=== PATIENT | female | born 1930 | race Caucasian/White ===

== ENCOUNTER 2016-05-22 17:07 | Emergency (ER) | payer MEDICARE, BC ==
[2016-05-04 19:46] VITALS: BMI 30.4
[~2016-05-22 17:07] MED LIST: ALEVE220 MG PO; ASPIRIN81 MG PO; NIFEDIPINE ER60 MG PO; PACERONE200 MG PO; PLAVIX75 MG PO; SYNTHROID75 MCG PO; ZESTORETIC 10/11 TAB PO
[2016-05-22 18:02] LABS: BASOPHILS 0.4 % (0.0-2.0); EOSINOPHILS 3.9 % (0-7); HEMATOCRIT 34.8 % (36.0-48.0); HEMOGLOBIN 11.5 g/dL (12-16); IMMATURE GRANULOCYTES 0.2 % (0-5); LYMPHOCYTES 29.8 % (15-50); MCH 30.2 pg (26.0-34.0); MCV 91.3 fL (80.0-100.0); MEAN PLATELET VOLUME 11.8 fL (7.4-10.4); MONOCYTES 12.6 % (2-11); NEUTROPHILS 53.1 % (40-80); PLATELET COUNT 167 10x3/uL (130-400); RBC 3.81 10x6/uL (4.00-5.40); RDW 15.9 % (11.5-14.5); WBC 5.6 10x3/uL (4.8-10.8)
[2016-05-22 18:14] LABS: ALBUMIN 3.2 g/dL (3.4-5.0); ALKALINE PHOSPHATASE 52 U/L (46-116); ALT (SGPT) 14 U/L (10-68); BILIRUBIN - TOTAL 0.68 mg/dL (0.2-1.3); CALC OSMOLALITY 287 mosm/kg (275-300); CALCIUM 9.1 mg/dL (8.5-10.1); CARBON DIOXIDE 26.2 mmol/L (21.0-32.0); CHLORIDE - SERUM 101 mmol/L (98-107); CREATININE - SERUM 2.7 mg/dL (0.6-1.3); GLUCOSE 93 mg/dL (74-106); POTASSIUM - SERUM 4.1 mmol/L (3.5-5.1); PROTEIN - SERUM 6.8 g/dL (6.4-8.2); SODIUM 136 mmol/L (136-145); UREA NITROGEN 57 mg/dL (7-18); eGFR NON AFRICAN AMERICAN 18 mL/min (90-120)
[2016-05-22 18:17] LABS: CREATINE KINASE 39 UL (21-215)
[2016-05-22 18:22] LABS: TROPONIN-I < 0.017 ng/mL (0.000-0.060)
== END 2016-05-22 18:33 | disposition home or self-care (01) ==
LOC: D.ER 17:07
PROVIDERS: Emergency Medicine
DX: M54.12 Radiculopathy, cervical region (principal); I25.10 Atherosclerotic heart disease of native coronary artery without angina pectoris; I10 Essential (primary) hypertension; E03.9 Hypothyroidism, unspecified

== ENCOUNTER 2016-12-25 07:10 | Outpatient (CLI) | payer MEDICARE, BC ==
[~2016-12-25] VITALS: Ht 167.6 cm; Wt 84.5 kg
--- NOTE | ~2016-12-25 | HEMODYNAMI ---
PATIENT:RICK NAIDU MEDICAL RECORD: [id number] : 34 LOCATION:[facility] ADMISSION DATE: 12/25/16 Generatedon:12/25/201617:07 Patient name: RICK NAIDU Patient #: [id number] SSN: : 1930 Date of study: 12/25/2016 Page: Of Hemodynamic Procedure Report Patient Data Patient Demographics Procedure consent was obtained First Name: RICK Gender: Female Last Name: EVANGELISTA : 1930 Middle Initial: M Age: 86 year(s) Patient #: [id number] Race: Unknown Additional ID: [id number] Contact details [address]: [address] [place] [address] State: [place] City: [facility] Zip code: [address] Past Medical History Allergies: No known allergies Admission Admission Data Admission Date: 12/25/2016 Admission Time: 7:10 Lab Results Lab Result Date: 12/25/2016 Lab Result Time: 10:30 Biochemistry Name Units Result Min Max BUN mg/dl 42 --(----)-* 7 18 Creatinine mg/dl 1.8 --(----)-* 0.6 1.3 CBC Name Units Result Min Max Hematocrit % 25.6 *-(----)-- 42 54 Hemoglobin g/dl 8.2 *-(----)-- 13.5 17.5 Procedure Procedure Types Cath Procedure Diagnostic Procedure LHC LHC w/Coronaries Miscellaneous Procedures Moderate Sedation up to 15 minutes Procedure Description Procedure Date Procedure Date: 12/25/2016 Procedure Start Time: 16:54 Procedure End Time: 17:04 Procedure Staff Name Function Ismael Brewer MD Performing Physician Fabricio Alvarez RN Nurse Jacques Chu RT Monitor Uri Rosales RT Scrub Procedure Data Cath Procedure Fluoroscopy Diagnostic fluoroscopy Total fluoroscopy Time: 1.7 time: 1.7 min min Diagnostic fluoroscopy Total fluoroscopy dose: 458 dose: 458 mGy mGy Contrast Material Contrast Material Type Amount (ml) Isovue 300 60 Entry Location Entry Primary Successful Side Size Upsize Upsize Entry Closure Powers ccessful Closure Location (Fr) 1 (Fr) 2 (Fr) Remarks Device Remarks Radial Right 6 Fr Mechanical artery Short Compression Estimated blood loss: 10 ml Diagnostic catheters Device Type Used For End Catheter Placement Diagnostic Terumo 5Fr Procedure [place] 110cm catheter Procedure Complications No complications Procedure Medications Medication Administration Route Dosage Oxygen NC 2 l/min unlisted medication Lidocaine 2% added to field 20 Heparin Flush Bag added to field 2 bags (1000units/500ml NS) 0.9% NaCl I.V. Versed I.V. 1 mg Fentanyl I.V. 50 mcg Radial Cocktail I.A. 1 syringe (Verapomil 2mg/Nitro 400mcg/Heparin 1500units) Versed I.V. 1 mg Fentanyl I.V. 50 mcg Hemodynamics Rest HGB: 8.2 (g/dl) Heart Rate: 54 (bpm) Snapshots Pre Cath Intra NCS Post Cath Vital Signs Time Heart Resp SPO2 etCO2 FH2exlc NIBP (mmHg) Rhythm Pain Sedation Rate (ipm) (%) (mmHg) (mmHg) Status Level (bpm) 16:42:14 58 14 97 0 0 160/85(138) SB 0 (11) 10(A) , No pain 16:46:28 56 15 98 0 0 156/82(134) SB 0 (11) 10(A) , No pain 16:50:44 52 15 95 0 0 145/72(123) SB 0 (11) 10(A) , No pain 16:54:56 48 16 95 0 0 135/70(116) SB 0 (11) 9(A) , No pain 16:59:06 52 18 95 0 0 114/66(88) SB 0 (11) 9(A) , No pain 17:03:09 51 27 96 0 0 121/66(95) SB 0 (11) 10(A) , No pain 17:06:36 51 18 98 0 0 128/72(110) SB 0 (11) 10(A) , No pain Medications Time Medication Route Dose Verified Delivered Reason Notes Effectiveness by by 16:46:31 Oxygen NC 2 l/min Ismael Regalado used for Daniella Alvarez RN procedure 16:47:18 Blood IV via rt Ismael Regalado Per Transfusion arm iv Daniella Alvarez RN physician 16:47:34 Lidocaine 2% added 20ml Ismael Guevara for local to vial Daniella Brewer MD anesthetic field 16:47:39 Heparin Flush added 2 bags Ismael Guevara used for Bag to Daniella Brewer MD procedure (1000units/500ml field NS) 16:47:48 0.9% NaCl I.V. kvo Ismael Regalado Per ml/hr Daniella Alvaerz RN physician 16:54:54 Versed I.V. 1 mg Ismael Regalado for sedation Daniella Alvarez RN 16:55:01 Fentanyl I.V. 50 mcg Ismael Regalado for sedation Daniella Alvarez RN 16:57:11 Radial Cocktail I.A. 1 Ismael Guevara for (Verapomil syringe Daniella Brewer MD vasodilation 2mg/Nitro 400mcg/Heparin 1500units) 17:01:11 Versed I.V. 1 mg Ismael Guevara for sedation Daniella Brewer MD 17:01:16 Fentanyl I.V. 50 mcg Ismael Guevara for sedation Daniella Brewer MD Procedure Log Time Note 16:10:06 Uri Rosales RT(R) sent for patient. Start room use. 16:22:07 Time tracking: Regular hours 16:22:11 Plan of Care:Hemodynamics will remain stable., Cardiac rhythm will remain stable., Comfort level will be maintained., Respiratory function will remain adequate., Patient/ family verbilizes understanding of procedure., Procedure tolerated without complication., Recovers from procedure without complications.. 16:33:18 Patient received from Pre/Post Procedure Room to CCL 1 Alert and oriented. Tansferred to table in Supine position. 16:33:19 Warm blankets applied, and bobby hugger turned on for patient comfort. 16:33:19 Correct patient and procedure confirmed by team. 16:33:21 Signed procedure consent form obtained from patient. 16:33:30 H&P Date Dictated: 12/24/2016 Within 30 days and on chart., H&P Addendum completed by physician on day of procedure. (MUST COMPLETE FOR ALL OUTPATIENTS). 16:33:38 Pre-procedure instructions explained to patient. 16:33:39 Pre-op teaching completed and patient verbalized understanding. 16:33:40 Family in waiting room. 16:33:42 Patient NPO since Midnight. 16:41:08 ECG and BP/O2 sat monitors applied to patient. 16:41:09 Vital chart was started 16:46:31 Oxygen 2 l/min NC was administered by Fabricio Alvarez RN; used for procedure; 16:47:18 Blood Transfusion via rt arm iv IV was administered by Fabricio Alvarez RN; Per physician; 16:47:34 Lidocaine 2% 20ml vial added to field was administered by Ismael Brewer MD; for local anesthetic; 16:47:39 Heparin Flush Bag (1000units/500ml NS) 2 bags added to field was administered by Ismael Brewer MD; used for procedure; 16:47:48 0.9% NaCl kvo ml/hr I.V. was administered by Fabricio Alvarez RN; Per physician; 16:49:08 Baseline sample Acquired. 16:49:20 Rhythm: sinus rhythm 16:49:44 Patient allergic to No known allergies 16:49:46 Is the patient allergic to Iodine/contrast media? No. 16:49:49 Is patient on blood thinner?No 16:49:50 Patient diabetic? No. 16:49:53 Previous problem with sedation/anesthesia? No ? 16:49:54 Snore? Yes 16:49:55 Sleep apnea? No 16:49:57 Deviated septum? No 16:49:57 Opens mouth fully? Yes 16:49:58 Sticks out tongue? Yes 16:50:00 Airway obstruction? No ? 16:50:04 Dentures? Yes In tight 16:50:07 Modified Byron's test Ulnar < 7 seconds 16:50:09 Patient pain scale 0/10 ?. 16:50:14 IV patent on arrival in left hand with 0.9% NaCl at KVO. 16:50:46 Lab Result : BUN 42 mg/dl 16:50:46 Lab Result : Hemoglobin 8.2 g/dl 16:50:46 Lab Result : Creatinine 1.8 mg/dl 16:50:46 Lab Result : Hematocrit 25.6 % 16:50:51 Lab results completed and on chart. 16:50:54 Right Radial & Right Groin area was prepped with chlora-prep and draped in sterile fashion 16:50:55 Alarms reviewed by R. N. 16:50:55 Sharps counted by scrub and verified by R.N. 16:50:59 Use device set Radial Dx 16:51:00 MBrace Wrist Support opened to sterile field. 16:51:01 Acist Manifold opened to sterile field. 16:51:02 Acist Hand Control opened to sterile field. 16:51:02 Tegaderm 4 x 4 opened to sterile field. 16:51:03 Acist Syringe opened to sterile field. 16:51:03 Medline Cath Pack opened to sterile field. 16:51:04 Bag Decanter opened to sterile field. 16:51:04 Terumo 6Fr Slender Glidesheath opened to sterile field. 16:51:05 St [place] 260cm J .035 wire opened to sterile field. 16:51:11 Physician arrived 16:51:12 --------ALL STOP TIME OUT------ 16:51:13 Final Timeout: patient, procedure, and site verified with staff and physician. All members of the team are in agreement. 16:51:16 Right Radial & Right Groin site verified by team. 16:51:18 Physical assessment completed. ASA score P 2 - A patient with mild systemic disease as per Ismael Brewer MD. 16:51:21 Sedation plan: IV Moderate Sedation Versed, Fentanyl 16:54:28 Zero performed for pressure channel P1 16:54:38 Zero performed for pressure channel P1 16:54:44 Procedure started. 16:54:44 Full Disclosure recording started 16:54:49 Local anesthetic to right radial artery with Lidocaine 2% by Ismael Brewer MD.INITIAL ACCESS ONLY 16:54:54 Versed 1 mg I.V. was administered by Fabricio Alvarez RN; for sedation; 16:55:01 Fentanyl 50 mcg I.V. was administered by Fabricio Alvarez RN; for sedation; 16:56:08 A 6 Fr Short sheath was inserted into the Right Radial artery 16:56:17 A Diagnostic Terumo 5Fr [place] 110cm catheter was advanced over the wire and used for Procedure. 16:57:11 Radial Cocktail (Verapomil 2mg/Nitro 400mcg/Heparin 1500units) 1 syringe I.A. was administered by Ismael Brewer MD; for vasodilation; 16:57:45 LV gram done using FIELDS 16:57:48 Injector settings: Ml/sec: 5, Volume: 15, 16:57:53 EF : 50 % 16:58:04 RCA angiography performed. 16:58:27 Catheter exchanged over wire. 16:59:21 Medtronic Launcher 6Fr EBU 3.5 SH guide catheter opened to sterile field. 16:59:29 6 Fr ebu 3.5 sh guide catheter was inserted over the wire 17:00:17 LCA angiography performed. 17:01:02 Catheter removed. 17:01:07 Terumo TR Band Standard opened to sterile field. 17:01:11 Versed 1 mg I.V. was administered by Ismael Brewer MD; for sedation; 17:01:14 Sheath removed intact; hemostasis achieved with Mechanical Compression to the Right Radial artery. 17:01:16 Fentanyl 50 mcg I.V. was administered by Ismael Brewer MD; for sedation; 17:02:04 Procedure ended.(Physican Out) 17:02:37 Fluoroscopy time 01.70 minutes. 17:02:41 Fluoroscopy dose: 458 mGy 17:02:41 Flurop Dose total: 458 17:02:46 Contrast amount:Isovue 300 60ml. 17:02:48 Sharps counted by scrub and verified by R.N. 17:02:54 TR band inflated with 10cc of air. 17:02:56 Insertion/operative site no bleeding no hematoma. 17:03:00 Post Procedure Pulses reassessed and unchanged 17:03:05 Post-procedure physical assessment completed. ASA score P 2 - A patient with mild systemic disease as per Ismael Brewer MD. 17:03:07 Post procedure rhythm: unchanged. 17:03:09 Estimated blood loss: 10 ml 17:03:11 Post procedure instruction explained to patient.Patient verbalizes understanding. 17:03:12 Patient needs reinforcement of post procedure teaching. 17:03:26 Procedure type changed to Cath procedure, Diagnostic procedure, LHC, LHC w/Coronaries, Miscellaneous Procedures, Moderate Sedation up to 15 minutes 17:03:42 Procedure and supply charges have been captured, reviewed, submitted and are correct. 17:03:44 Procedure Complication : No complications 17:03:46 Vital chart was stopped 17:03:46 See physician's report for complete and final results. 17:03:56 Report given to PCU. 17:03:59 Patient transfered to PCU with Stretcher. 17:04:09 Procedure ended. 17:04:09 Full Disclosure recording stopped 17:04:11 End room use (Document Last) Device Usage Item Name Manufacture Quantity Catalog Hospital Part Current Minimal Lot# / Number Charge Number Stock Stock Serial# Code Jarrod [facility] Rhea 140-0250-00 604210 22486 [id number] 5 Wrist Vascular Support Dynamics Acist Acist 1 54497 392565 378803 229268 5 Manifold [employer] Inc Acist Hand Acist 1 00478 050018 578046 136226 5 Control [employer] Inc Tegaderm 4 3M 1 1626W 227162 863558 162839 5 x 4 Acist Acist 1 49185 353731 639219 430438 20 Syringe Medical Systems Inc Medline Cardinal 1 [id number] 557443 01460 100960 5 Cath Pack Health Bag Microtek 1 2002S [id number] 94315 701173 5 [employer] Terumo 6Fr Terumo 1 [id number] 018158 011296 251554 [address] [facility] Miguel 1 871530 668301 152613 782876 30 260cm J .035 wire Diagnostic Terumo 1 [id number] 802736 152247 832654 5 Terumo 5Fr [place] 110cm catheter Medtronic Medtronic 1 [id number] 239373 18089 938836 1 Launcher 6Fr EBU 3.5 SH guide catheter Terumo TR Terumo 1 [id number] 210431 822889 443053 40 Band Standard Signature Audit [place] Stage Time Signature Unsigned Intra-Procedure 12/25/2016 Jacques Chu 5:07:32 PM RT(R) Signatures Monitor : Jacques Chu RT Signature : Date : Time : [facility] [address] [place] [address]
[2016-12-25 10:15] VITALS: BP 151/74
[2016-12-25 10:47] LABS: BASOPHILS 0.4 % (0-2); EOSINOPHILS 3.3 % (0-7); HEMATOCRIT 25.6 % (36.0-48.0); HEMOGLOBIN 8.2 g/dL (12-16); IMMATURE GRANULOCYTES 0.2 % (0-5); MCH 28.1 pg (26.0-34.0); MCV 87.7 fL (80.0-100.0); MEAN PLATELET VOLUME 11.1 fL (7.4-10.4); MONOCYTES 7.3 % (2-11); NEUTROPHILS 57.8 % (40-80); PLATELET COUNT 187 10x3/uL (130-400); RBC 2.92 10x6/uL (4.00-5.40); RDW 16.4 % (11.5-14.5); WBC 4.9 10x3/uL (4.8-10.8)
[2016-12-25 10:59] LABS: ANION GAP 12.7 mmol/L (8-16); CALCIUM 8.5 mg/dL (8.5-10.1); CARBON DIOXIDE 25.8 mmol/L (21.0-32.0); CREATININE - SERUM 1.8 mg/dL (0.6-1.3); POTASSIUM - SERUM 4.5 mmol/L (3.5-5.1)
--- NOTE | 2016-12-25 15:45 | NUR ---
20 G IV TO RIGHT FOREARM-CDI, FIRST UNIT PRBC STARTED PER PUMP AT 75CC/HR VSS. WILL MONITOR CLOSELY.
--- NOTE | 2016-12-25 16:04 | NUR ---
PRBC INFUSING PER PUMP WITHOUT DIFFICULTY. VSS. PRODUCTION ENGINEER IN USE
--- NOTE | 2016-12-25 17:43 | NUR ---
PT ARRIVED FROM PALM GATHERER WITH TR BAND TO R.WRIST. SITE CLEAN AND DRY. PT HAS BLOOD TRANSFUSING VIA R.FA PIV @100ML/HR. PT ALSO HAS A L.AC PIV WITH NS @100ML/HR INFUSING. PT IS A&O RESTING QUIETLY IN BED WITH AT BEDSIDE. PT IS HOPING TO BE DISCHARGED TOMORROW MORNING AND ONLY HERE TO RECIEVE HER 2 UNITS OF BLOOD. VSS AND BEING MONITERED PER POLICY. PT HUNGRY AND DINNER TRAY HAS BEEN ORDERED FOR PT. PERIPHERAL PULSES INTACT. PT DENIES ANY CURRENT PAIN OR NEEDS AT THIS TIME. CL IN REACH, BED IN LOWEST, SIDE RAILS X2. WILL CPOC.
--- NOTE | 2016-12-25 18:37 | NUR ---
FIRST UNIT OF BLOOD FINISHED TRANSFUSING. NO REACTION NOTED. VSS THROUGHOUT WHOLE TRANSFUSION. PTS PIV NOW FLUSHING AND WILL RECIEVE SECOND UNIT WITH SLEEP LAB TECHNOLOGIST NURSE. R.WRIST TR BAND STILL INTACT AND NO S/S OF BLEEDING OR HEMATOMA NOTED. PERIPHERAL PULSES INTACT. WILL REPORT TO SLEEP LAB TECHNOLOGIST NURSE. NO FURTHER NEEDS AT THIS TIME. CL IN REACH, BED IN LOWEST, SIDE RAILS X2. WILL CPOC.
--- NOTE | 2016-12-25 19:23 | NUR ---
PT IN BED RESTING. EQUAL CHEST RISE AND FALL. EVEN AND UNLABORED RESPIRATIONS NOTED. WILL CONTINUE TO MONITOR.
[2016-12-25 20:00] VITALS: BP 124/69
[2016-12-25 21:04] VITALS: Ht 167.6 cm; Wt 84.5 kg
--- NOTE | 2016-12-25 23:53 | NUR ---
AIR REMOVED FROM TR BAND AT THIS TIME. NO BLEEDING AT THE SITE NOTED WILL CONTINUE TO MONITOR
[2016-12-26] VITALS: BP 135/74
[2016-12-26 04:00] VITALS: BP 132/68
--- NOTE | 2016-12-26 05:18 | NUR ---
ASSUMMED CARE OF PATIENT, PATIENT IS APPEARING ASLEEP LAYING ON BACK. TR BAND IS SEEN TO RIGHT WRIST. RESP ARE EVEN AND NON LABORED. WILL CPOC.
--- NOTE | 2016-12-26 07:40 | NUR ---
AM ROUNDING DONE WITH PATIENT RESTING ON BACK WITH EYES CLOSED. RESP ARE EVEN AND NON LABORED. ON ROOM AIR. RIGHT FA SEEN WIRH SALINE LOCK. TR BAND SEEN TO RIGHT WRIST. ON HEART MONITOR SHOWING SB, HR 49. WILL CPOC.
[2016-12-26 08:04] VITALS: BP 123/71
--- NOTE | 2016-12-26 08:48 | NUR ---
PATIENT SITTING UP IN CHAIR WITH AT BEDSIDE. BILATERAL SALINE LOCKS FLUSHED EASILY.
--- NOTE | 2016-12-26 10:34 | NUR ---
LEFT SALINE LOCK IS REMOVED WITH CATH TIP INTACT ALONG WITH THE HEART MONITOR. RIGHT SALINE LOCK IS STILL IN UNTIL FINAL DISCHARGE.
--- NOTE | 2016-12-26 11:45 | NUR ---
VERBAL AND WRITTEN DISCHARGE INSTRUCTIONS GIVEN TO PATIENT AND SPOUSE. RIGHT SALINE LOCK REMOVED WITH CATH TIP INTACT. DISCHARGED HOME VIA WHEELCHAIR.
--- NOTE | 2017-01-01 09:42 | OP ---
PATIENT NAME: RICK NAIDU MEDICAL RECORD: [id number] :34 LOCATION:D.[facility] ADMISSION DATE: SURGEON: JOSELIN ASHBY MD DATE OF OPERATION: 12/25/2016 PROCEDURES: 1. Left heart catheterization. 2. Selective coronary angiography. 3. Left ventriculogram. INDICATION: Chest pain. PROCEDURE IN DETAIL: After informed consent was obtained and after detailed explanation of risks, benefits as well as alternative therapies, the patient elected to proceed with angiogram and heart catheterization. The right radial area was prepped and draped in normal sterile fashion. The right radial artery was cannulated via modified Seldinger technique with placement of 5-Mauritian sheath. Catheters exchanged through this sheath. FINDINGS: Left ventriculogram was performed in standard 30-degree FIELDS view, reveals good cardiac wall motion throughout all segments. Overall ejection fraction estimated at 60%. SELECTIVE CORONARY ANGIOGRAPHY: 1. Left main showed no significant angiographic disease. 2. Left anterior descending has previously placed stents. These are widely patent with no significant restenosis. No disease elsewise throughout the left anterior descending and its branches. 3. Left circumflex shows moderate irregularities, but no flow-limiting stenosis. 4. Right coronary has moderate irregularities, but no flow-limiting stenosis. OVERALL IMPRESSION: Chest pain secondary to the anemia, no new coronary artery disease is present. Center medical management on treatment of the anemia. TRANSINT:[id number] Voice Confirmation ID: [id number] DOCUMENT ID: [id number] JOSELIN ASHBY MD at 0942 CC: [id number] DICTATION DATE: 12/25/16 170 RESERVATION AGENT: 12/26/16 0136 DEP CLI 12/26/16 [id number] [place] [address]
== END 2016-12-26 11:47 | disposition home or self-care (01) ==
LOC: D.CATH 07:10 → D.M2 17:32 → D.CATH 12-26 11:47
PROVIDERS: Internal Medicine Interventional Cardiology
DX: I25.119 Atherosclerotic heart disease of native coronary artery with unspecified angina pectoris (principal); I10 Essential (primary) hypertension; I48.0 Paroxysmal atrial fibrillation; Z01.812 Encounter for preprocedural laboratory examination

== ENCOUNTER → 2017-01-14 16:54 | Outpatient (CLI) | payer MEDICARE, BC ==
[2017-01-14 17:53] LABS: BASOPHILS 0.4 % (0-2); EOSINOPHILS 3.4 % (0-7); HEMATOCRIT 32.2 % (36.0-48.0); HEMOGLOBIN 10.3 g/dL (12-16); IMMATURE GRANULOCYTES 0.2 % (0-5); LYMPHOCYTES 30.9 % (15-50); MCH 28.1 pg (26.0-34.0); MCV 87.7 fL (80.0-100.0); MEAN PLATELET VOLUME 11.8 fL (7.4-10.4); MONOCYTES 9.9 % (2-11); NEUTROPHILS 55.2 % (40-80); PLATELET COUNT 178 10x3/uL (130-400); RBC 3.67 10x6/uL (4.00-5.40); RDW 16.5 % (11.5-14.5); WBC 5.1 10x3/uL (4.8-10.8)
== END | disposition home or self-care (01) ==
LOC: D.LABREF 16:54
PROVIDERS: Internal Medicine Interventional Cardiology
DX: I10 Essential (primary) hypertension (principal)

== ENCOUNTER → 2017-11-05 08:30 | Outpatient (CLI) | payer MEDICARE, BC ==
[~2017-11-05] VITALS: Ht 167.6 cm; Wt 87.7 kg
--- NOTE | ~2017-11-05 | HEMODYNAMI ---
PATIENT:RICK NAIDU MEDICAL RECORD: [id number] : 34 LOCATION:[facility] ADMISSION DATE: 11/05/17 Generatedon:11/05/201712:38 Patient name: RICK NAIDU Patient #: [id number] SSN: : [id number] Date of study: 11/05/2017 Page: Of Hemodynamic Procedure Report Patient Data Patient Demographics Procedure consent was obtained First Name: RICK Gender: Female Last Name: EVANGELISTA : 1930 Middle Initial: M Age: 87 year(s) Patient #: [id number] Race: Additional ID: [id number] Contact details Address: [address] [place] [address] State: [place] City: [facility] Zip code: [address] Past Medical History Allergies: No known allergies Admission Admission Data Admission Date: 11/05/2017 Admission Time: 8:30 Procedure Procedure Types Cath Procedure Diagnostic Procedure LHC LHC w/Coronaries FFR/IVUS Intra-Coronary IVUS Initial Intra-Coronary IVUS Additional Sedation Charges Moderate Sedation up to 15 minutes PCI Procedure Coronary Stent Coronary Stent Initial Procedure Description Procedure Date Procedure Date: 11/05/2017 Procedure Start Time: 12:14 Procedure End Time: 12:33 Procedure Staff Name Function Ismael Brewer MD Performing Physician Vonnie Lynch RT Monitor Fabricio Alvarez RN Nurse Bee Benson RT Scrub Procedure Data Cath Procedure Fluoroscopy Diagnostic fluoroscopy Total fluoroscopy Time: 3.7 time: 3.7 min min Diagnostic fluoroscopy Total fluoroscopy dose: dose: 1149 mGy 1149 mGy Contrast Material Contrast Material Type Amount (ml) Isovue 300 76 Entry Location Entry Primary Successful Side Size Upsize Upsize Entry Closure Powers ccessful Closure Location (Fr) 1 (Fr) 2 (Fr) Remarks Device Remarks Radial Right 6 Fr Mechanical artery Short Compression Estimated blood loss: 5 ml Diagnostic catheters Device Type Used For End Catheter Placement DIAGNOSTIC [place] 110cm 5 Multi-vessel Fr catheter ([id number]) Angiography Procedure Complications No complications Procedure Medications Medication Administration Route Dosage Oxygen NC 2 l/min Lidocaine 2% added to field 20 Heparin Flush Bag added to field 2 bags (1000units/500ml NS) 0.9% NaCl I.V. 100 ml/hr Versed I.V. 1 mg Fentanyl I.V. 50 mcg Radial Cocktail I.A. 1 syringe (Verapomil 2mg/Nitro 400mcg/Heparin 1500units) Versed I.V. 1 mg Fentanyl I.V. 50 mcg Heparin Bolus I.V. 4000 units Integrilin (Bolus I.V. 7.9 ml 2mg/ml) Plavix P.O. 600 mg Hemodynamics Rest Heart Rate: 50 (bpm) Pressure Samples Time Site Value (mmHg) Purpose Heart Use Rate(bpm) 12:16 LV 63/8,32 Snapshot 51 Snapshots Pre Cath Intra NCS Post Cath Vital Signs Time Heart Resp SPO2 etCO2 NIBP Rhythm Pain Sedation Rate (ipm) (%) (mmHg) (mmHg) Status Level (bpm) 11:59:07 51 16 95 25.3 150/71(92) NSR 0 (11) 10(A) , No pain 12:07:35 44 16 94 25.3 144/63(94) NSR 0 (11) 10(A) , No pain 12:11:16 48 19 93 25.3 125/34(94) NSR 0 (11) 10(A) , No pain 12:15:39 46 15 94 22.3 Out of NSR 0 (11) 9(A) range , No pain 12:19:28 48 17 93 20.8 111/62(79) NSR 0 (11) 9(A) , No pain 12:23:30 48 13 94 25.3 118/61(74) NSR 0 (11) 9(A) , No pain 12:27:11 49 17 93 28.3 114/68(91) NSR 0 (11) 9(A) , No pain 12:31:14 45 15 93 26.8 120/67(92) NSR 0 (11) 10(A) , No pain Medications Time Medication Route Dose Verified Delivered Reason Note s Effectiveness by by 11:55:00 Oxygen NC 2 l/min Ismael Regalado used for Daniella Alvarez pocket maker 11:55:07 Lidocaine 2% added 20ml Ismael Regalado for local to vial Daniella Alvarez RN anesthetic field 11:55:14 Heparin Flush added 2 bags Ismael Regalado used for Bag to Daniella Alvarez RN procedure (1000units/500ml field NS) 11:55:22 0.9% NaCl I.V. 100 Ismael Regalado Per physician ml/hr Daniella Alvarez RN 12:11:27 Versed I.V. 1 mg Ismael Regalado for sedation Daniella Alvarez RN 12:11:33 Fentanyl I.V. 50 mcg Ismael Regalado for sedation Daniella Alvarez RN 12:13:42 Radial Cocktail I.A. 1 Ismael Guevara for (Verapomil syringe Daniella Brewer MD vasodilation 2mg/Nitro 400mcg/Heparin 1500units) 12:16:18 Versed I.V. 1 mg Ismael Guevara for sedation Daniella Brewer MD 12:16:22 Fentanyl I.V. 50 mcg Ismael Guevara for sedation Daniella Brewer MD 12:24:12 Heparin Bolus I.V. 4000 Ismael Guevara for veri fied units Daniella Brewer MD anticoagulation with dr brewer 12:25:25 Integrilin I.V. 7.9 ml Ismael nava (Bolus 2mg/ml) Daniella Brewer MD antiplatelet therapy 12:29:04 Plavix P.O. 600 mg Ismael Regalado for Daniella Alvarez RN antiplatelet therapy Procedure Log Time Note 11:44:55 Informed consent obtained and on chart 11:45:02 Diagnostic Cath Status : Elective 11:45:56 Fabricio Alvarez RN sent for patient. Start room use. 11:45:57 Time tracking: Regular hours (M-F 7:00 - 5:00) 11:46:01 Plan of Care:Hemodynamics will remain stable., Cardiac rhythm will remain stable., Comfort level will be maintained., Respiratory function will remain adequate., Patient/ family verbilizes understanding of procedure., Procedure tolerated without complication., Recovers from procedure without complications.. 11:47:57 Patient received from Pre/Post Procedure Room to CCL 2 Alert and oriented. Tansferred to table in Supine position. 11:47:57 Warm blankets applied, and bobby hugger turned on for patient comfort. 11:47:58 Correct patient and procedure confirmed by team. 11:47:58 ECG and BP/O2 sat monitors applied to patient. 11:55:00 Oxygen 2 l/min NC was administered by Fabricio Alvarez RN; used for procedure; 11:55:07 Lidocaine 2% 20ml vial added to field was administered by Fabricio Alvarez RN; for local anesthetic; 11:55:14 Heparin Flush Bag (1000units/500ml NS) 2 bags added to field was administered by Fabricio Alvarez RN; used for procedure; 11:55:22 0.9% NaCl 100 ml/hr I.V. was administered by Fabricio Alvarez RN; Per physician; 11:56:47 Vital chart was started 11:58:29 Baseline sample Acquired. 11:58:37 Rhythm: 1st degree heart block 12:05:01 Full Disclosure recording started 12:05:07 H&P Date Dictated: 11/05/2017 Within 30 days and on chart., H&P Addendum completed by physician on day of procedure. (MUST COMPLETE FOR ALL OUTPATIENTS). 12:05:20 Pre-procedure instructions explained to patient. 12:05:20 Pre-op teaching completed and patient verbalized understanding. 12:05:22 Family in waiting room. 12:05:23 Patient NPO since Midnight. 12:05:25 Is the patient allergic to Iodine/contrast media? No. 12:05:26 Was the patient premedicated? No 12:05:26 Is patient on blood thinner?No 12:05:28 Patient diabetic? No. 12:05:55 Previous problem with sedation/anesthesia? No ? 12:05:58 Snore? No 12:05:59 Sleep apnea? No 12:06:01 Deviated septum? No 12:06:02 Opens mouth fully? Yes 12:06:03 Sticks out tongue? Yes 12:06:45 Airway obstruction? No ? 12:06:48 Dentures? No ? 12:06:55 Pre procedure: right dorsailis pedis pulse 2+ Normal; easily identifiable; not easily obliterated 12:06:58 Pre procedure: left dorsailis pedis pulse 2+ Normal; easily identifiable; not easily obliterated 12:07:23 Patient pain scale 0/10 ?. 12:07:30 IV patent on arrival in left antecubital with 0.9% NaCl at [facility]. 12:07:33 Lab results completed and on chart. 12:07:45 Right Radial area was prepped with chlora-prep and draped in sterile fashion 12:07:46 Alarms reviewed by R. N. 12:07:47 Sharps counted by scrub and verified by R.N. 12:09:47 Physician arrived 12:09:48 --------ALL STOP TIME OUT------ 12:09:48 Final Timeout: patient, procedure, and site verified with staff and physician. All members of the team are in agreement. 12:09:52 Right Radial site verified by team. 12:09:55 Physical assessment completed. ASA score P 2 - A patient with mild systemic disease as per Ismael Brewer MD. 12:09:58 Sedation plan: IV Moderate Sedation Medication:Versed, Fentanyl 12:11:00 Use device set Radial Dx or PCI 12:11:01 ACIST Syringe (24947) opened to sterile field. 12:11:01 Medline Cath Pack ([id number]) opened to sterile field. 12:11:02 Bag Decanter (2002S) opened to sterile field. 12:11:02 DIAGNOSTIC WIRE .035 260cm J wire (315780) opened to sterile field. 12:11:03 ACIST Hand Control (17855) opened to sterile field. 12:11:03 ACIST Manifold (83761) opened to sterile field. 12:11:05 Tegaderm 4 x 4 (1626W) opened to sterile field. 12:11:06 MBrace Wrist Support ([id number]) opened to sterile field. 12:11:08 SHEATH 6Fr Prelude Radial ([id number]) opened to sterile field. 12:11:27 Versed 1 mg I.V. was administered by Fabricio Alvarez RN; for sedation; 12:11:33 Fentanyl 50 mcg I.V. was administered by Fabricio Alvarez RN; for sedation; 12:13:42 Radial Cocktail (Verapomil 2mg/Nitro 400mcg/Heparin 1500units) 1 syringe I.A. was administered by Ismael Brewer MD; for vasodilation; 12:13:43 Procedure started. 12:14:26 Local anesthetic to right radial artery with Lidocaine 2% by Ismael Brewer MD.INITIAL ACCESS ONLY 12:14:36 A 6 Fr Short sheath was inserted into the Right Radial artery 12:14:47 A DIAGNOSTIC [place] 110cm 5 Fr catheter (883965) was advanced over the wire and used for Multi-vessel Angiography. 12:16:18 Versed 1 mg I.V. was administered by Ismael Brewer MD; for sedation; 12:16:22 Fentanyl 50 mcg I.V. was administered by Ismael Brewer MD; for sedation; 12:16:41 LV hemodynamics recorded. 12:16:42 LV gram done using FIELDS 12:16:49 EF : 50 % 12:17:11 RCA angiography performed. 12:17:21 Injector settings: Ml/sec: 3, Volume: 6, 12:18:15 Catheter removed. 12:18:16 GUIDE 6FR EBU 3.5 catheter ([id number]) opened to sterile field. 12:18:27 6 Fr ebu 3.5 guide catheter was inserted over the wire 12:19:05 LCA angiography performed. 12:19:08 Injector settings: Ml/sec: 3, Volume: 6, 12:20:07 Proceeding to intervention. 12:20:34 Orange [place] IVUS Catheter (14338X) opened to sterile field. 12:20:35 CHOICE PT Extra Support 182cm wire ([id number]) opened to sterile field. 12:20:35 INFLATOR Merit BasixCompak (RK6541) opened to sterile field. 12:21:45 choice ptw wire advanced. 12:21:49 Wire advanced across lesion. 12:21:53 IVUS catheter advanced over wire. 12:24:12 Heparin Bolus 4000 units I.V. was administered by Ismael Brewer MD; for anticoagulation; verified with dr brewer 12:24:35 IVUS pass to LAD lesion performed. 12:24:39 IVUS catheter removed over wire. 12:24:45 IVUS pass to LMCA lesion performed. 12:25:10 Place stent Inflation Number: 1 A VIJAY RX 4.0 x 12 stent ([id number]) was prepped and advanced across the Prox LAD. The stent was deployed at 15 CYNTHIA for 0:10 (min:sec). 12:25:25 Integrilin (Bolus 2mg/ml) 7.9 ml I.V. was administered by Ismael Brewer MD; for antiplatelet therapy; 12:26:37 Stent catheter was removed intact over wire. 12:26:39 Wire removed. 12::39 Guide catheter removed. 12::43 TR BAND Standard ([id number]) opened to sterile field. 12::57 Sheath removed intact; hemostasis achieved with Mechanical Compression to the Right Radial artery. 12::59 Procedure ended.(Physican Out) 12::39 Fluoroscopy time 03.70 minutes. 12::44 Flurop Dose total: 1149 12::44 Fluoroscopy dose: 1149 mGy 12::40 Contrast amount:Isovue 300 76ml. 12::42 Sharps counted by scrub and verified by R.N. 12::48 TR band inflated with 0cc of air. 12::49 Insertion/operative site no bleeding no hematoma. 12::54 Post right radial artery:stable 12::56 Post Procedure Pulses reassessed and unchanged 12:29:00 Post procedure rhythm: unchanged. 12:29:04 Plavix 600 mg P.O. was administered by Fabricio Alvarez RN; for antiplatelet therapy; 12:: Estimated blood loss: 5 ml 12::06 Post procedure instruction explained to patient.Patient verbalizes understanding. 12:29:06 Patient needs reinforcement of post procedure teaching. 12:32:21 Procedure type changed to Cath procedure, Diagnostic procedure, LHC, LHC w/Coronaries, FFR/IVUS, Intra-Coronary IVUS Initial, Intra-Coronary IVUS Additional, Sedation Charges, Moderate Sedation up to 15 minutes, PCI procedure, Coronary Stent, Coronary Stent Initial 12:32:22 Procedure and supply charges have been captured, reviewed, submitted and are correct. 12:: Procedure Complication : No complications 12:: Vital chart was stopped 12::52 See physician's report for complete and final results. 12:33:19 Report given to ED. 12:33:23 Patient transfered to Pre/Post Procedure Room with Stretcher. ::29 Procedure ended. 12::29 Full Disclosure recording stopped 12:33:35 ACC-PCI Only Patient was given prescriptions, or instructed by Ismael Brewer MD to start/continue the following medications upon discharge: Plavix 12:33:36 End room use (Document Last) Intervention Summary Intervention Notes Time ActionType Lesion and Equipment Used Action# Pressure Duration Attributes 12:25:[address] stent Prox LAD VIJAY RX 4.0 x 1 15 00:10 12 stent ([id number]) Device Usage Item Name Manufacture Quantity Catalog Number Hospital Part Current Minimal Lot# / Charge Number Stock Stock Serial# Code ACIST Syringe Acist 1 74631 [id number] 278424 595424 20 (95487) Medical Systems Inc Medline Cath Cardinal 1 [id number] 794494 29798 755220 5 Pack Health ([id number]) Bag Decanter Microtek 1 2001S 726630 92787 728373 5 () Medical Inc. DIAGNOSTIC WIRE St Miguel 1 079971 417513 413423 908340 30 .035 260cm J wire (964693) ACIST Hand Acist 1 72908 336203 182799 673090 5 Control (14040) Medical Systems Inc ACIST Manifold Acist 1 46028 619194 486120 018180 5 (38495) Medical Systems Inc Tegaderm 4 x 4 3M 1 1626W 087751 007048 498308 5 (1626W) MBrace Wrist Advanced 1 140-0250-00 561067 72541 363864 5 Support Vascular ([id number]) Dynamics SHEATH 6Fr Merit 1 [id number] 023862 040180 301837 5 Prelude Radial Medical ([id number]) DIAGNOSTIC Terumo 1 40-9213 714080 039945 950397 5 [place] 110cm 5 Fr catheter (801607) GUIDE 6FR EBU Medtronic 1 [id number] 436300 74762 049679 3 3.5 catheter ([id number]) Orange Orange 1 75223K 255268 992643 673243 8 [place] IVUS Catheter (75261L) CHOICE PT Extra Braxton 1 [id number] 860658 747974 306330 5 Support 182cm Scientific wire ([id number]) INFLATOR Merit Merit 1 UI0756 853645 944347 959312 15 BasixwunderloopazCNS Therapeutics Medical ([id number]) VIJAY RX 4.0 x Medtronic 1 [id number] 243151 5564035 552904 5 [id number] 12 stent ([id number]) TR BAND Terumo 1 [id number] 456970 074593 971562 40 Standard ([id number]) Signature Audit [place] Stage Time Signature Unsigned Intra-Procedure 11/05/2017 Vonnie Lynch 12:38:12 PM RT(R) Signatures Monitor : Vonnie Lynch RT Signature : Date : Time : [address] [place] [address]
--- NOTE | ~2017-11-05 | OP ---
PATIENT NAME: RICK NAIDU MEDICAL RECORD: [id number] :34 LOCATION:D.CAT ADMISSION DATE: SURGEON: JOSELIN ASHBY MD DATE OF OPERATION: 11/05/2017 PROCEDURES: 1. PTCA stent left main. 2. Intravascular ultrasound of left main. 3. Intravascular ultrasound of the LAD. 4. Left ventriculogram. 5. Left heart catheterization. 6. Selective coronary angiography. INDICATION: Angina and coronary artery disease. DESCRIPTION OF PROCEDURE: After informed consent was obtained and after detailed explanation of risks, benefits as well as alternative therapies, the patient elected to proceed with angiogram and angioplasty. The right radial area was prepped and draped in normal sterile fashion. Right radial artery was cannulated via modified Seldinger technique with placement of 6-Mongolian sheath. All catheters exchanged through this sheath. FINDINGS: The left ventriculogram was performed in standard 30-degree FIELDS view, reveals good cardiac wall motion throughout all segments. Overall ejection fraction estimated 60%. SELECTIVE CORONARY ANGIOGRAPHY: 1. Left main has a greater than 80% stenosis confirmed by intravascular ultrasound. 2. The left anterior descending has previously placed stents. Intravascular ultrasound and angiography revealed no significant restenosis. No disease elsewise at the LAD or its branches. 3. The left circumflex has moderate irregularities, but no flow-limiting stenosis. 4. Right coronary is very large, dominant with no significant stenosis. PTCA STENT OF THE LEFT MAIN: Stent used was a 4.0 x 12 mm Willie. Result was 0% residual stenosis. OVERALL IMPRESSION: Successful PTCA stent of the left main going from 80% initial stenosis to 0% residual stenosis. TRANSINT:[id number] Voice Confirmation ID: [id number] DOCUMENT ID: [id number] JOSELIN ASHBY MD at 1713 CC: [id number] DICTATION DATE: 11/05/17 1230 DISTRICT ENGINEER: 11/05/17 1240 [facility] CLI 11/05/[address] [address]
[2017-11-05 09:56] VITALS: BP 175/91; Ht 167.6 cm; Wt 87.7 kg
[2017-11-05 10:00] LABS: BASOPHILS 0.4 % (0-2); EOSINOPHILS 5.5 % (0-7); HEMATOCRIT 39.5 % (36.0-48.0); HEMOGLOBIN 13.4 g/dL (12-16); LYMPHOCYTES 34.2 % (15-50); MCHC 33.9 g/dL (31.0-37.0); MCV 97.3 fL (80.0-100.0); MEAN PLATELET VOLUME 11.4 fL (7.4-10.4); MONOCYTES 11.3 % (2-11); NEUTROPHILS 48.6 % (40-80); RBC 4.06 10x6/uL (4.00-5.40); RDW 14.9 % (11.5-14.5); WBC 4.9 10x3/uL (4.8-10.8)
[2017-11-05 10:04] LABS: PLATELET COUNT 132 10x3/uL (130-400)
[2017-11-05 10:15] LABS: ANION GAP 14.2 mmol/L (8-16); CARBON DIOXIDE 25.2 mmol/L (21.0-32.0); CREATININE - SERUM 1.6 mg/dL (0.6-1.3); POTASSIUM - SERUM 4.4 mmol/L (3.5-5.1)
== END | disposition home or self-care (01) ==
LOC: D.CATH 08:30
PROVIDERS: Internal Medicine Interventional Cardiology
DX: I25.119 Atherosclerotic heart disease of native coronary artery with unspecified angina pectoris (principal); Z01.812 Encounter for preprocedural laboratory examination
CPT/HCPCS: 92978; 92979; 93458; C9600

== ENCOUNTER → 2019-02-24 08:14 | Outpatient (CLI) | payer MEDICARE, BC ==
[2017-11-05 09:56] VITALS: BMI 31.2
[~2019-02-24 08:14] MED LIST changes: +ROPINIROLE HCL0.5 MG PO
--- NOTE | 2019-03-03 13:29 | ST ---
PATIENT:RICK NAIDU MEDICAL RECORD: [id number] SEX: F LOCATION:[facility] ORDER #: ADMISSION DATE: 02/24/19 AGE OF PATIENT: 88 REFERRING PHYSICIAN: INTERPRETING PHYSICIAN: JOSELIN ASHBY MD DATE OF SERVICE: 02/24/2019 PROCEDURE: Nuclear stress test. INDICATION: Angina, shortness of breath, coronary artery disease, and hypertension. She was exercised on standard Lexiscan protocol with 33 mCi of sestamibi injected at peak stress, 11 mCi used previously for rest images. FINDINGS: Gated SPECT reveals preserved ejection fraction at 59% with good wall motion and thickening and brightening throughout all segments. SPECT imaging: Cardiolite was used as myocardial perfusion agent. There is reversible ischemia anteriorly and apically. This includes the basal, mid, apical anterior segments as well as the apex itself. The degree of reversibility is moderate. The amount of myocardium involved is moderate to large. OVERALL IMPRESSION: This is an intermediate to high risk nuclear stress test with reversible ischemia anteriorly and apically suggestive of hemodynamically significant coronary artery disease. TRANSINT:[id number] Voice Confirmation ID: [id number] DOCUMENT ID: [id number] JOSELIN ASHBY MD at 1329 CC: CHANDNI NASCIMENTO [id number] DICTATION DATE: 03/01/19 1642 DEPUTY SHERIFF LIEUTENANT: 03/02/19 0903 [facility] CLI 02/24/19 [address] [place] [address]
== END | disposition home or self-care (01) ==
LOC: D.HCCARDIO 08:14
PROVIDERS: ATTEND Internal Medicine Interventional Cardiology
DX: I25.10 Atherosclerotic heart disease of native coronary artery without angina pectoris (principal)

== ENCOUNTER 2019-03-06 07:39 | Outpatient (CLI) | payer MEDICARE, BC ==
[~2019-03-06] VITALS: Ht 167.6 cm; Wt 87.7 kg
--- NOTE | ~2019-03-06 | HEMODYNAMI ---
PATIENT:RICK NAIDU MEDICAL RECORD: [id number] : 34 LOCATION:[facility] ADMISSION DATE: 03/06/19 Generatedon:03/06/201910:10 Patient name: RICK NAIDU Patient #: [id number] SSN: [id number] : 1930 Date of study: 03/06/2019 Page: Of Hemodynamic Procedure Report Patient Data Patient Demographics Procedure consent was obtained First Name: RICK Gender: Female Last Name: EVANGELISTA : 1930 Middle Initial: M Age: 88 year(s) Patient #: [id number] Race: SSN: [id number] Additional ID: [id number] Contact details Address: [address] [place] [address] State: [place] City: [facility] Zip code: [address] Past Medical History Allergies: No known allergies Admission Admission Data Admission Date: 03/06/2019 Admission Time: 7:39 Arrival Date: 03/06/2019 Arrival Time: 0:00 Insurance Payor: Medicare [facility] #: [id number] Height (in.): 66.14 BSA: 1.98 (m2) Height (cm.): 168 BMI: 31.18 (kg/m2) Weight (lbs.): 194.01 Weight (kg.): 88 Lab Results Lab Result Date: 03/06/2019 Lab Result Time: 0:00 Biochemistry Name Units Result Min Max BUN mg/dl 29 --(----)-* 7 18 Creatinine mg/dl 1.6 --(----)-* 0.6 1.3 eGFR ml/min 32 *-(----)-- 90 120 NONAFRICAN CBC Name Units Result Min Max Hemoglobin g/dl 13.2 -*(----)-- 13.5 17.5 Procedure Procedure Types Cath Procedure Diagnostic Procedure LHC LHC w/Coronaries FFR/IVUS FFR Initial Sedation Charges Moderate Sedation up to 15 minutes PCI Procedure Coronary Stent Coronary Stent Initial Procedure Description Procedure Date Procedure Date: 03/06/2019 Procedure Start Time: 9:40 Procedure End Time: 10:07 Procedure Staff Name Function Ismael Brewer MD Performing Physician Jessica Rojas RT Monitor Andreina Jeter RT Monitor Annabel Grey RT Scrub [place] Mendez RN Nurse Indication CAD Procedure Data Cath Procedure Fluoroscopy Diagnostic fluoroscopy Total fluoroscopy Time: 7.2 time: 7.2 min min Diagnostic fluoroscopy Total fluoroscopy dose: dose: 1048 mGy 1048 mGy Contrast Material Contrast Material Type Amount (ml) Isovue 300 140 Entry Location Entry Primary Successful Side Size Upsize Upsize Entry Closure Powers ccessful Closure Location (Fr) 1 (Fr) 2 (Fr) Remarks Device Remarks Radial Right 6 Fr Mechanical artery Short Compression Estimated blood loss: 10 ml Diagnostic catheters Device Type Used For End Catheter Placement DIAGNOSTIC Levelock 110cm 5 Procedure Fr catheter ([id number]) DIAGNOSTIC AR2 MOD 5 Fr Procedure catheter ([id number]) Procedure Complications No complications Procedure Medications Medication Administration Route Dosage 0.9% NaCl I.V. 100 ml/hr Oxygen etCO2 Nasal cannula 2 l/min Lidocaine 2% added to field 20 Heparin Flush Bag added to field 2 bags (1000units/500ml NS) Radial Cocktail added to field 1 syringe (Verapamil 2mg/Nitro 400mcg/Heparin 1500units) Versed I.V. 2 mg Fentanyl I.V. 50 mcg Heparin Bolus I.V. 4000 units Integrilin (Bolus I.V. 7.9 ml 2mg/ml) Integrilin (Bolus wasted 2.1 ml 2mg/ml) Plavix P.O. 600 mg Hemodynamics Rest BSA: 1.98 (m2) HGB: 13.2 (g/dl) O2 Consumption: Estimated: 269.28 (ml/min) O2 Co nsumption indexed: Estimated:136 (ml/min/m) Heart Rate: 0 (bpm) Snapshots Pre Cath Intra NCS Post Cath Vital Signs Time Heart Resp SPO2 etCO2 NIBP (mmHg) Rhythm Pain Sedation Rate (ipm) (%) (mmHg) Status Level (bpm) 9:24:04 60 17 97 24.5 144/87(128) NSR 0 (11) 10(A) , No pain 9:28:34 58 18 98 14.8 134/78(111) SB 0 (11) 10(A) , No pain 9:33:03 56 16 97 23 136/80(115) SB 0 (11) 10(A) , No pain 9:37:29 54 14 98 11.8 134/78(106) SB 0 (11) 10(A) , No pain 9:41:53 54 17 97 28.2 123/76(108) SB 0 (11) 9(A) , No pain 9:46:11 57 15 98 26 112/67(89) SB 0 (11) 9(A) , No pain 9:50:31 56 16 98 26.7 121/71(100) SB 0 (11) 9(A) , No pain 9:54:56 53 15 97 26.8 115/62(98) SB 0 (11) 9(A) , No pain 9:59:20 54 19 97 26 124/67(102) SB 0 (11) 9(A) , No pain 10:03:44 50 18 97 26.8 118/69(98) SB 0 (11) 10(A) , No pain Medications Time Medication Route Dose Verified Delivered Reason Note s Effectiveness by by 9:32:33 0.9% NaCl I.V. 100 Ismael [place] used for ml/hr Daniella Mendez watch case polisher 9:32:40 Oxygen etCO2 2 l/min Ismael [place] used for Nasal Daniella Mendez procedure cannula RN 9:32:44 Lidocaine 2% added 20ml Ismael Guevara for local to vial Daniella Brewer MD anesthetic field 9:32:48 Heparin Flush added 2 bags Ismael Guevara used for Bag to Daniella Brewer MD procedure (1000units/500ml field NS) 9:32:53 Radial Cocktail added 1 Ismael Guevara used for (Verapamil to syringe Daniella Brewer MD procedure 2mg/Nitro field 400mcg/Heparin 1500units) 9:36:31 Versed I.V. 2 mg Ismael [place] for sedation Daniella Mendez RN 9:36:36 Fentanyl I.V. 50 mcg Ismael [place] for sedation Daniella Mendez RN 9:50:02 Heparin Bolus I.V. 4000 Ismael [place] for veri fied units Daniella Mendez anticoagulation with Dr. JEFF Brewer 9:50:14 Integrilin I.V. 7.9 ml Ismael [place] for (Bolus 2mg/ml) Daniella Mendez antiplatelet RN therapy 9:51:01 Integrilin wasted 2.1 ml Ismael [place] for (Bolus 2mg/ml) Daniella Mendez antiplatelet RN therapy 9:51:51 Plavix P.O. 600 mg Ismael [place] for Daniella Mendez antiplatelet RN therapy Procedure Log Time Note 9:03:51 Informed consent obtained and on chart 9:05:07 Indication : CAD 9:05:23 Procedure Status Elective Heart Cath (OP). 9:08:54 Arrival Date: 03/06/2019 12:00:00 AM 9:13:24 Lab Result : Hemoglobin 13.2 g/dl 9:13:24 Lab Result : eGFR NONAFRICAN 32 ml/min 9:13:24 Lab Result : BUN 29 mg/dl 9:13:24 Lab Result : Creatinine 1.6 mg/dl 9:13:32 Jessica Rojas RT(R) sent for patient. Start room use. 9:13:34 Time tracking: Regular hours (M-F 7:00 - 5:00) 9:13:42 Plan of Care:Hemodynamics will remain stable., Cardiac rhythm will remain stable., Comfort level will be maintained., Respiratory function will remain adequate., Patient/ family verbilizes understanding of procedure., Procedure tolerated without complication., Recovers from procedure without complications.. 9:17:23 Patient received from Pre/Post Procedure Room to CCL 1 Alert and oriented. Tansferred to table in Supine position. 9:18:56 ACC Patient presents with Stable Angina CCS Anginal Class 2--Slight limitation of ordinary activity. 9:19:07 ACCPatient has been prescribed/administered the following anti-anginal medication within the last 2 weeks: OG-Inhibitor 9:19:09 Warm blankets applied, and bobby hugger turned on for patient comfort. 9:19:10 Correct patient and procedure confirmed by team. 9:19:12 ECG and BP/O2 sat monitors applied to patient. 9:19:50 Insurance Payor : Medicare 9:19:56 Patient Height : 66.14 inches 9:20:02 Patient Weight : 194.01 lbs 9:20:34 H&P Date Dictated: 03/06/2019 H&P Addendum completed by physician on da y of procedure. (MUST COMPLETE FOR ALL OUTPATIENTS), New H&P dictated by physician.. 9:20:39 Pre-procedure instructions explained to patient. 9:20:41 Pre-op teaching completed and patient verbalized understanding. 9:20:46 Family in waiting room. 9:20:50 Patient NPO since Midnight. 9:21:02 Patient allergic to No known allergies 9:21:16 Is the patient allergic to Iodine/contrast media? No. 9:21:21 Was the patient premedicated? Yes 9:21:24 Is patient on blood thinner?No 9:21:30 Patient diabetic? No. 9:21:35 Patient not . Patient is over age 55. 9:21:37 ----Pre-sedation anethsthesia assessment.---- 9:21:41 Previous problem with sedation/anesthesia? No ? 9:21:45 Snore? No 9:21:47 Sleep apnea? No 9:21:50 Deviated septum? No 9:21:52 Opens mouth fully? Yes 9:21:55 Sticks out tongue? Yes 9:21:58 Airway obstruction? No ? 9:22:10 Dentures? Yes in tight 9:22:43 Vital chart was started 9:22:45 Baseline sample Acquired. 9:22:59 Baseline sample Acquired. 9:23:08 Rhythm: sinus rhythm 9:23:12 Full Disclosure recording started 9:23:14 - 9:26:42 Pre procedure: right dorsailis pedis pulse 1+ Palpable, but thready & weak; easily obliterated 9:26:54 Modified Byron's test Ulnar < 7 seconds 9:26:59 Patient pain scale 0/10 ?. 9:27:11 IV patent on arrival in right antecubital with 0.9% NaCl at [facility]. 9:27:18 Lab results completed and on chart. 9:27:24 Risk of Mortality: 2.1 9:27:29 Risk of blood transfusion: 0.8 9:27:35 Risk of SAUL: 3.7 9:27:45 Right Radial & Right Groin area was prepped with chlora-prep and draped in sterile fashion 9:27:47 Alarms reviewed by R. N. 9:27:48 Sharps counted by scrub and verified by R.N. 9:27:54 Use device set Radial Dx or PCI 9:27:57 ACIST Syringe (99603) opened to sterile field. 9:27:58 Medline Cath Pack ([id number]) opened to sterile field. 9:27:58 Bag Decanter (2002) opened to sterile field. 9:27:59 ACIST Hand Control (98616) opened to sterile field. 9:28:00 ACIST Manifold (42262) opened to sterile field. 9:28:01 Tegaderm 4 x 4 (1626W) opened to sterile field. 9:28:02 MBrace Wrist Support ([id number]) opened to sterile field. 9:28:04 EMERALD Guide Wire (039-328) opened to sterile field. 9:28:05 SHEATH 6FR RAIN (0590943) opened to sterile field. 9:32:33 0.9% NaCl 100 ml/hr I.V. was administered by Indiana Mendez RN; used for procedure; Verbal order read back and verified. 9:32:40 Oxygen 2 l/min etCO2 Nasal cannula was administered by Indiana Mendez RN ; used for procedure; Verbal order read back and verified. 9:32:44 Lidocaine 2% 20ml vial added to field was administered by Ismael Brewer MD; for local anesthetic; Verbal order read back and verified. 9:32:48 Heparin Flush Bag (1000units/500ml NS) 2 bags added to field was administered by Ismael Brewer MD; used for procedure; Verbal order read back and verified. 9:32:53 Radial Cocktail (Verapamil 2mg/Nitro 400mcg/Heparin 1500units) 1 syring e added to field was administered by Ismael Brewer MD; used for procedure; Verbal order read back and verified. 9:35:11 Physician arrived 9:35:12 --------ALL STOP TIME OUT------ 9:35:13 Final Timeout: patient, procedure, and site verified with staff and physician. All members of the team are in agreement. 9:35:17 Right Radial & Right Groin site verified by team. 9:35:24 Fire Safety Assessment: A--An alcohol-based skin anteseptic being used preoperatively., C--Open oxygen or nitrous oxide is being used., D--An ESU, laser, or fiber-optic light is being used. 9:35:30 Physical assessment completed. ASA score P 2 - A patient with mild systemic disease as per Ismael Brewer MD. 9:35:39 3b) 30-44 Moderately reduced kidney function. 9:36:01 Maximum allowable contrast dose (3.7 X eGFR X 0.75)89 ml. 9:36:08 Sedation plan: IV Moderate Sedation Medication:Versed, Fentanyl 9:36:31 Versed 2 mg I.V. was administered by Indiana Mendez RN; for sedation; Verbal order read back and verified. 9:36:36 Fentanyl 50 mcg I.V. was administered by Indiana Mendez RN; for sedation ; Verbal order read back and verified. 9:37:54 Procedure started. 9:40:18 Local anesthetic to right radial artery with Lidocaine 2% by Ismael Brewer MD.INITIAL ACCESS ONLY 9:40:35 A 6 Fr Short sheath was inserted into the Right Radial artery 9:40:53 A DIAGNOSTIC Levelock 110cm 5 Fr catheter ([id number]) was advanced over the wire and used for Procedure. 9:40:56 Zero performed for pressure channel P1 9:41:49 LV gram done using FIELDS 9:42:26 EF : 50 % 9:42:32 Injector settings: Ml/sec: 5, Volume: 15, 9:42:45 LCA angiography performed. 9:44:23 INFLATOR Merit BasixCompak (PG3581) opened to sterile field. 9:44:33 [place] Verrata Plus pressure wire (68531Y) opened to sterile field. 9:44:58 Catheter exchanged over wire. 9:45:13 A DIAGNOSTIC AR2 MOD 5 Fr catheter ([id number]) was advanced over the wire and used for Procedure. 9:45:48 RCA angiography performed. 9:46:08 ACCDominant side:Right 9:46:16 Catheter exchanged over wire. 9:46:34 GUIDE 6FR XBLAD 3.5 catheter ([id number]) opened to sterile field. 9:46:47 Proceeding to intervention. 9:47:00 6 Fr xblad3.5 guide catheter was inserted over the wire 9:47:42 CHOICE PT Extra Support 182cm wire ([id number]) opened to sterile field. 9:50:02 Heparin Bolus 4000 units I.V. was administered by Indiana Mendez RN; for anticoagulation; verified with Dr. Brewer Verbal order read back and verified. 9:50:14 Integrilin (Bolus 2mg/ml) 7.9 ml I.V. was administered by Indiana Mendez RN; for antiplatelet therapy; Verbal order read back and verified. 9:50:39 Pre PCI Site: Three Affiliated mCirc has 90% stenosis. 9:50:50 choice pt wire advanced. 9:51:01 Integrilin (Bolus 2mg/ml) 2.1 ml wasted was administered by Indiana Mendez RN; for antiplatelet therapy; Verbal order read back and verified. 9:51:51 Plavix 600 mg P.O. was administered by Indiana Mendez RN; for antiplatelet therapy; Verbal order read back and verified. 9:53:16 Inflate balloon Inflation number: 1 A Mozec Rx 2.0 x 15 balloon was prepped and advanced across the Mid CX , then inflated to 15 CYNTHIA for 0:10 (min:sec) . 9:53:35 Inflation number: 2 The Mozec Rx 2.0 x 15 balloon was reinflated across the Mid CX , to 15 CYNTHIA for 0:00 (min:sec) . 9:53:52 Inflation number: 3 The Mozec Rx 2.0 x 15 balloon was reinflated across the Mid CX , to 19 CYNTHIA for 0:00 (min:sec) . 9:54:06 Inflation number: 4 The Mozec Rx 2.0 x 15 balloon was reinflated across the Mid CX , to 19 CYNTHIA for 0:10 (min:sec) . 9:54:14 Inflation number: 5 The Mozec Rx 2.0 x 15 balloon was reinflated across the Mid CX , to 19 CYNTHIA for 0:00 (min:sec) . 9:54:27 Balloon removed over the wire. 9:56:26 Place stent Inflation Number: 6 A VIJAY RX 2.0 x 12 stent ([id number]) was prepped and advanced across the Mid CX . The stent was deployed at 19 CYNTHIA for 0:10 (min:sec) . 9:56:34 Stent catheter was removed intact over wire. 9:56:52 Wire removed. 9:57:17 [place] Verrata Plus pressure wire (44316C) opened to sterile field. 9:57:26 FFR/IFR wire advanced. 9:57:55 Wire advanced across lesion. 9:58:24 mLAD lesion measured at 0.90 with IFR 9:59:14 Wire removed. 9:59:15 Guide catheter removed. 9:59:25 ACT drawn and resulted at 267 seconds. (normal therapeutic range 180-24 0 seconds). 9:59:37 ZEPHYR REGULAR TR BAND (377218) opened to sterile field. 9:59:48 Procedure ended.(Physican Out) 10:00:16 Sheath removed intact; hemostasis achieved with Mechanical Compression to the Right Radial artery. 10:00:28 Fluoroscopy time 07.20 minutes. 10:00:39 Fluoroscopy dose: 1048 mGy 10:00:39 Flurop Dose total: 1048 10:01:05 Dose Area Product 317508 mGy/cm. 10:01:13 Contrast amount:Isovue 300 140ml. 10:01:18 Maximum allowable dose exceeded? Yes. 10:01:20 Sharps counted by scrub and verified by R.N. 10:01:28 [place] band inflated with 8cc of air. 10:01:31 Insertion/operative site no bleeding no hematoma. 10:01:45 Post right radial artery:stable 10:01:54 Post Procedure Pulses reassessed and unchanged 10:02:02 Post-procedure physical assessment completed. ASA score P 2 - A patient with mild systemic disease as per Ismael Brewer MD. 10:02:07 Post procedure rhythm: unchanged. 10:02:12 Estimated blood loss: 10 ml 10:02:28 Post procedure instruction explained to patient.Patient verbalizes understanding. 10:02:30 Patient needs reinforcement of post procedure teaching. 10:03:31 Procedure type changed to Cath procedure, Diagnostic procedure, LHC, LH C w/Coronaries, FFR/IVUS, FFR Initial, Sedation Charges, Moderate Sedation up to 15 minutes, PCI procedure, Coronary Stent, Coronary Stent Initial 10:04:48 Procedure and supply charges have been captured, reviewed, submitted an d are correct. 10:04:57 Procedure Complication : No complications 10:06:17 Post PCI Site: Three Affiliated mCirc has 0% stenosis. 10:06:47 Vital chart was stopped 10:06:51 [facility] Findings: MVD- PCI performed (see procedure note) 10:06:57 Operative report dictated upon procedure completion. 10:06:58 See physician's report for complete and final results. 10:07:02 Report given to Pre/Post Procedure Room. 10:07:06 Patient transfered to Pre/Post Procedure Room with Stretcher. 10:07:10 Procedure ended. 10:07:10 Full Disclosure recording stopped 10:07:20 ACC-PCI Only Patient was given prescriptions, or instructed by Ismael Brewer MD to start/continue the following medications upon discharge: Plavix 10:07:22 End room use (Document Last) Intervention Summary Intervention Notes Time ActionType Lesion and Equipment Used Action# Pressure Duration Attributes 9:53:16 Inflate Mid CX Mozec Rx 2.0 x 1 15 00:10 balloon 15 balloon 9:53:35 Reinflate Mid CX Mozec Rx 2.0 x 2 15 00:00 balloon 15 balloon 9:53:52 Reinflate Mid CX Mozec Rx 2.0 x 3 19 00:00 balloon 15 balloon 9:54:06 Reinflate Mid CX Mozec Rx 2.0 x 4 19 00:10 balloon 15 balloon 9:54:14 Reinflate Mid CX Mozec Rx 2.0 x 5 19 00:00 balloon 15 balloon 9:56:26 [address] stent Mid CX VIJAY RX 2.0 x 6 19 00:10 12 stent ([id number]) Device Usage Item Name Manufacture Quantity Catalog Number Hospital Part Current Minimal Lot# / Charge Number Stock Stock Serial# Code ACIST Syringe Acist 1 81270 220403 655038 430972 20 (64611) Medical Systems Inc Medline Cath Medline 1 [id number] 321340 32993 110084 5 Pack ([id number]) Bag Decanter Microtek 1 464382 47430 273967 5 () Medical Inc. ACIST Hand Acist 1 78546 295647 062271 445209 5 Control Medical (73690) Systems Inc ACIST Manifold Acist 1 22941 852837 676212 525351 5 (40810) Medical Systems Inc Tegaderm 4 x 4 3M 1 1626W 140796 569514 425261 5 (1626W) MBrace Wrist Advanced 1 140-0250-00 315893 36204 009575 5 Support Vascular (694596514) Dynamics EMERALD Guide Cardinal 1 502-455 664252 844643 171337 5 Wire (502-455) Health SHEATH 6FR Cardinal 1 5647271 529483 1566302 684749 5 RAIN (8294963) Health DIAGNOSTIC Terumo 1 40-5013 135375 347035 059921 5 Levelock 110cm 5 Fr catheter (446271) INFLATOR Merit Merit 1 UZ9750 841912 587711 604887 15 Future Simple Medical (YR6198) [place] 2 17949P 433199 113560459 331989 5 Verrata Plus pressure wire (39818Y) DIAGNOSTIC AR2 Cardinal 1 [id number] 094909 617110 577353 20 MOD 5 Fr Health catheter (494173K) GUIDE 6FR Cardinal 1 57361453 324516 407330 675307 10 XBLAD 3.5 Health catheter (74701929) CHOICE PT Arma 1 [id number] 160957 740779 586922 5 Extra Support Scientific 182cm wire (7401657P9) Mozec Rx 2.0 x Cardinal 1 [id number] 773197 31214 048919 5 UMOE33 15 balloon Health VIJAY RX 2.0 x Medtronic 1 [id number] 977129 1095782 493493 5 [id number] 12 stent ([id number]) ZEPHYR REGULAR Cardinal 1 142178 597796 8899765 058818 5 TR BAND Health (940904) Signature Audit [place] Stage Time Signature Unsigned Intra-Procedure 03/06/2019 Andreina 10:08:11 AM Steffany RT(R) (CV) Intra-Procedure 03/06/2019 Indiana Mendez 10:09:49 AM RN Intra-Procedure 03/06/2019 Ismael Brewer 10:10:14 AM [facility] [address] [place] [address]
[~2019-03-06 07:39] MED LIST changes: -ROPINIROLE HCL0.5 MG PO
[2019-03-06] MEDS ORDERED: ROPINIROLE HCL0.5 MG PO (08:12)
[2019-03-06] MEDS ORDERED: ALEVE220 MG PO (08:12)
[2019-03-06 08:30] VITALS: BP 173/81; Ht 167.6 cm; Wt 87.7 kg
[2019-03-06 08:41] LABS: BASOPHILS 0.6 % (0-2); EOSINOPHILS 2.6 % (0-7); HEMATOCRIT 40.4 % (36.0-48.0); HEMOGLOBIN 13.2 g/dL (12-16); IMMATURE GRANULOCYTES 0.2 % (0-5); LYMPHOCYTES 29.9 % (15-50); MCH 32.8 pg (26.0-34.0); MCHC 32.7 g/dL (31.0-37.0); MCV 100.5 fL (80.0-100.0); MEAN PLATELET VOLUME 11.6 fL (7.4-10.4); MONOCYTES 9.6 % (2-11); NEUTROPHILS 57.1 % (40-80); PLATELET COUNT 154 10x3/uL (130-400); RBC 4.02 10x6/uL (4.00-5.40); RDW 15.2 % (11.5-14.5)
[2019-03-06 08:55] LABS: ANION GAP 13.2 mmol/L (8-16); CALCIUM 8.9 mg/dL (8.5-10.1); CARBON DIOXIDE 26.2 mmol/L (21.0-32.0); CHOL - HDL RATIO 2.7 ratio (2.3-4.1); CREATININE - SERUM 1.6 mg/dL (0.6-1.3); LDL-HDL RATIO 1.5 ratio (1.5-3.5); POTASSIUM - SERUM 4.4 mmol/L (3.5-5.1)
[2019-03-06] MEDS ORDERED: PLAVIX75 MG PO (10:24)
--- NOTE | 2019-03-06 10:31 | NUR ---
PT DROWSY, DENIES ANY C/O. Z BAND IS CDI TO RIGHT WRIST, NO BLEEDING OR HEMATOMA NOTED. FINGERS WARM AND CAP REFILL IS BRISK. WRIST IMMOBILIZER IN PLACE, PT INSTUCTED TO AVOID BENDING/ FLEXING RIGHT WRIST AND VERBALIZES UNDERSTANDING. SINUS DEVONTE AT 57, DENIES ANY C/O CHEST PAIN. BP IS 128/69. BED LOCKED AND LOW, SIDE RAILS UP X2, CALL LIGHT IN REACH. AT BEDSIDE.
--- NOTE | 2019-03-06 10:39 | NUR ---
Z BAND IS CDI, FINGERS WARM AND CAP REFILL IS BRISK. VSS. PT DENIES ANY C/O. CALL LIGHT IN REACH.
--- NOTE | 2019-03-06 11:20 | NUR ---
PT SLEEPING, AWAKENS EASILY, DENIES ANY C/O. Z BAND IS CDI, RADIAL PULSE PALPABLE. SINUS DEVONTE AT 52, BP IS 126/71.
--- NOTE | 2019-03-06 11:51 | NUR ---
PT SLEEPING, RESP WITH EASE ON O2 AT 2PM VIA NC. DR ASHBY HAS ROUNDED AND SPOKEN WITH PT'S . Z BAND IS CDI, FINGERS WARM AND CAP REFILL IS BRISK. VSS.
--- NOTE | 2019-03-06 12:30 | NUR ---
PT DENIES ANY C/O. Z BAND CDI, RADIAL PULSE PALPABLE. NSR RATE 62, DENIES ANY C/O CHEST PAIN
--- NOTE | 2019-03-06 13:14 | NUR ---
3 CCOF AIR WEANED FROM Z BAND WITH NO BLEEDING NOTED. FINGERS WARM AND CAP REFILL IS BRISK. PT ALERT, DENIES ANY C/O. SANDWICH AND PO FLUIDS SERVED. AT BEDSIDE.
--- NOTE | 2019-03-06 13:29 | NUR ---
3 CC OF AIR WEANED FROM Z BAND WITH NO BLEEDING NOTED. FINGERS WARM, CAP REFILL IS BRISK, PULSES PALPABLE.
--- NOTE | 2019-03-06 13:38 | NUR ---
DC INSTRUCTIONS REVIEWED WITH PT AND WHO VERBALIZE UNDERSTANDING. [facility] PRESCRIPTION CALLED TO [facility] IN [place] PER PT REQUEST.
--- NOTE | 2019-03-06 13:45 | NUR ---
ATTEMPTED REMOVAL OF AIR FROM TR BAND WITH OOZING NOTED. AIR REINSTILED AND OOZING CEASED, WILL CONTINUE TO MONITOR.
--- NOTE | 2019-03-06 14:18 | NUR ---
2 CC OF AIR WEANED FROM Z BADN WITH NO BLEEDING NOTED. FINGERS WARM AND CAP REFILL IS BRISK. PT DENIES ANY C/O. NSR, RATE IS 61, BP IS 114/75.
--- NOTE | 2019-03-06 14:45 | NUR ---
2 CC OF AIR WEAENED FROM Z BAND WITH NO BLEEDING NOTED. RADIAL PULSE PALPABLE. FINGERS WARM AND PT DENIES ANY NV DEFICIT TO HAND. VSS, AT BEDSIDE.
--- NOTE | 2019-03-06 15:06 | NUR ---
2 CC OF AIR WEANED FROM Z BAND WITH NO BLEEDING NOTED
--- NOTE | 2019-03-06 15:25 | NUR ---
ALL AIR HAS BEEN WEANED FROM Z BAND WITH NO BLEEDING NOTED.
--- NOTE | 2019-03-06 16:01 | NUR ---
1527 Z BAND REMOVED AND 2X2, TEGADERM PLACED TO CATH SITE. IV DC'D WITH CATH INTACT AND PT IS DRESSING FOR DISCHARGE WITH NURSE ASSISTING. 1545 DRESSING REMAINS CDI RIGHT WRIST, NO BLEEDING NOTED. RADIAL PULSE PALPABLE, PT DENIES ANY NV DEFICIT TO HAND. PT ESCORTED TO PVT AUTO VIA WC BY NURSE WITH DRIVENG HER HOME. PT HAS ALL PERSONAL BELONGINGS AND DC INSTRUCTIONS.
--- NOTE | 2019-03-14 11:40 | OP ---
PATIENT NAME: RICK NAIDU MEDICAL RECORD: [id number] :34 LOCATION:D.CAT ADMISSION DATE: SURGEON: JOSELIN ASHBY MD DATE OF OPERATION: 03/06/2019 PROCEDURES: 1. PTCA stent left circumflex. 2. IFR. 3. Left heart catheterization. 4. Selective coronary angiography. 5. Left ventriculogram. INDICATION: Angina and coronary artery disease. PROCEDURE IN DETAIL: After informed consent was obtained and after a detailed description of the risks, benefits as well as alternative therapies, the patient elected to proceed with angiogram and angioplasty. The right radial area was prepped and draped in normal sterile fashion. Right radial artery was cannulated via modified Seldinger technique with placement of 6-Amharic sheath. All catheters exchanged through this sheath. FINDINGS: Left ventriculogram was performed in standard 30-degree FIELDS view, reveals good cardiac wall motion, ejection fraction is 60%. SELECTIVE CORONARY ANGIOGRAPHY: 1. Left main is with no significant angiographic disease. 2. Left anterior descending has previously placed stents that appear to be widely patent. An IFR is normal at 0.9. 3. Left circumflex has 90% stenosis in the proximal vessel. 4. Right coronary artery has mild irregularities, but no flow-limiting stenosis. PTCA STENT OF THE LEFT CIRCUMFLEX: The stent used was a 2.0 x 12 mm Willie. Result was 0% residual stenosis. OVERALL IMPRESSION: Successful percutaneous transluminal coronary angioplasty stent of the circumflex going from 90% initial stenosis to 0% residual. TRANSINT:[id number] Voice Confirmation ID: [id number] DOCUMENT ID: [id number] JOSELIN ASHBY MD at 1140 CC: [id number] DICTATION DATE: 03/06/19 1003 KEEPER HEAD: 03/06/19 1129 DEP CLI 03/06/19 [place] [address]
== END 2019-03-06 15:45 | disposition home or self-care (01) ==
LOC: D.CATH 07:39
PROVIDERS: ATTEND Internal Medicine Interventional Cardiology
DX: I25.119 Atherosclerotic heart disease of native coronary artery with unspecified angina pectoris (principal)
CPT/HCPCS: 93458; 93571; C9600

== ENCOUNTER → 2019-08-01 16:31 | Outpatient (CLI) | payer MEDICARE, BC ==
[2019-03-06 08:30] VITALS: BMI 31.2
[~2019-08-01 16:31] MED LIST changes: +ROPINIROLE HCL0.5 MG PO
[2019-08-01 17:01] LABS: ALT (SGPT) 18 U/L (10-68); CHOLESTEROL, TOTAL 165 mg/dL (0-200)
== END | disposition home or self-care (01) ==
LOC: D.LABREF 16:31
PROVIDERS: ATTEND Nurse Practitioner
DX: I25.10 Atherosclerotic heart disease of native coronary artery without angina pectoris (principal)